=== PATIENT | male | born 1990 | race African-American/Black ===

== ENCOUNTER 2022-06-14 22:45 | Emergency (ER) | payer OTHER ==
[~2022-06-14] VITALS: Ht 175.3 cm; Wt 105.0 kg
[2022-06-14] MEDS ORDERED: ONDANSETRON HCL 4MG/2ML INJ IV STA (22:53)
[2022-06-14] MEDS ORDERED: MORPHINE SULFATE 4 MG/ML CPJ (NOT FOR IM USE) IV STA (22:53)
[2022-06-14] MEDS ORDERED: TETANUS, DIPHTHERIA, PERTUSSIS VAC/PF 0.5ML (>10YR OLD) IM ONE (23:00)
[2022-06-14] MEDS ORDERED: SODIUM CHLORIDE 0.9% 1,000 ML IV ONE (23:00)
[2022-06-14] MEDS ORDERED: PIPERACILLIN/TAZ 3.375G PREMIX 50 ML IV ONE (23:00)
[2022-06-14 23:24] VITALS: BP 177/120
== END 2022-06-14 23:39 | disposition short-term general hospital (02) ==
LOC: ER 22:50
DX: S31.143A Puncture wound of abdominal wall with foreign body, right lower quadrant without penetration into peritoneal cavity, initial encounter (principal); S21.141A Puncture wound with foreign body of right front wall of thorax without penetration into thoracic cavity, initial encounter; Z87.828 Personal history of other (healed) physical injury and trauma; Z98.890 Other specified postprocedural states; X93.XXXA Assault by handgun discharge, initial encounter; Y93.89 Activity, other specified; Y92.89 Other specified places as the place of occurrence of the external cause; Y99.8 Other external cause status
CPT/HCPCS: 71045; 96365; 96375; 99291; J2270; J2405; J7030